=== PATIENT | male | born 1955 | race Caucasian/White ===

== ENCOUNTER 2021-12-25 04:26 | Day surgery (SDC) | payer OTHER, BC ==
[2021-12-18 12:36] VITALS: BMI 25.8
[2021-12-25] MEDS ORDERED: KETAMINE HCL 200 MG/20 ML VIAL ONE (07:42)
[2021-12-25 08:53] VITALS: TEMP 98
[2021-12-25 09:22] VITALS: BP 101/53; PULSE 62
== END 2021-12-25 09:33 | disposition home or self-care (01) ==
LOC: JASU-ENDO 04:26
PROVIDERS: ATTEND Internal Medicine Gastroenterology
PROC: 0DBC8ZX Excision of Ileocecal Valve, Via Natural or Artificial Opening Endoscopic, Diagnostic (ICD-10-PCS; principal; 2021-12-25 08:00)
DX: Z12.11 Encounter for screening for malignant neoplasm of colon (principal); D17.9 Benign lipomatous neoplasm, unspecified; K57.30 Diverticulosis of large intestine without perforation or abscess without bleeding; K64.8 Other hemorrhoids; K63.89 Other specified diseases of intestine
CPT/HCPCS: 88305-TC